=== PATIENT | male | born 1975 | race Caucasian/White ===

== ENCOUNTER 2019-05-11 20:05 | Emergency (ER) | payer MEDICAID ==
[~2019-05-11] VITALS: Ht 172.7 cm; Wt 72.6 kg
--- NOTE | 2019-05-11 20:05 | NUR ---
PT REPORTED AMBULATORY ON SEEN. SCOOTED SELF FROM GURNEY TO BED 4.
[2019-05-11 20:09] VITALS: BP 144/88
--- NOTE | 2019-05-11 20:09 | NUR ---
43 Y/O MALE BIBA FOR RIGHT FLANK PAIN. PER AMBULANCE, PATIENT WENT TO [facility] FOR THE PAIN AND WAS UPSET THAT NOTHING WAS DONE AND STARTED SWINGING HIS LUGGAGE AROUND. PATIENT STATES A PAIN OF 10/10 RIGHT FLANK PAIN NON RADIATING. ABDOMEN IS SOFT AND ROUND. ABDOMINAL SOUNDS ARE PRESENT. PAIN UPON RIGHT SIDE FLANK PALPATION. PATIENT IS A POOR HISTORIAN. ERMD MADE AWARE OF STATUS. SIDE RAILSX1. PLACED ON MONITOR. PMH: BIPOLAR; SCHIZOPHRENIA RX:DENIES NKDA
--- NOTE | 2019-05-11 20:15 | NUR ---
ERMD AT BEDSIDE EVALUATING PATIENT.
[2019-05-11] MEDS ORDERED: KETOROLAC 60 MG/2 ML VIAL IM ONE (20:30)
--- NOTE | 2019-05-11 20:36 | NUR ---
PATIENT AMBULATED TO RESTROOM.
--- NOTE | 2019-05-11 20:37 | NUR ---
PATIENT REFUSED TO GO TO X-RAY. VIRGINIAD MADE AWARE.
--- NOTE | 2019-05-11 20:38 | NUR ---
PATIENT AMBULATED BACK TO ROOM.
[2019-05-11 20:58] VITALS: BP 144/88
--- NOTE | 2019-05-11 20:58 | NUR ---
PATIENT REFUSING TREATMENT AT THIS TIME. ERMD AWARE. [facility].
--- NOTE | 2019-05-11 20:58 | NUR ---
PATIENT ELOPED FROM FACILITY. DISCHARGE INSTRUCTIONS NOT GIVEN TO PATIENT. DR. STOCK NOTIFIED.
--- NOTE | 2019-05-11 20:59 | NUR ---
Pippa ochoa in ED - 05/11/19 at 2102 by MILI PATIENT REFUSING TREATMENT AT THIS TIME. LORENZA AWARE. AMBULATED TO THE [facility].
== END 2019-05-11 20:58 | disposition home or self-care (01) ==
LOC: MED 20:05
DX: S29.011A Strain of muscle and tendon of front wall of thorax, initial encounter (principal); F31.9 Bipolar disorder, unspecified; F20.9 Schizophrenia, unspecified; X58.XXXA Exposure to other specified factors, initial encounter; Y92.89 Other specified places as the place of occurrence of the external cause; Y93.89 Activity, other specified; Y99.8 Other external cause status
CPT/HCPCS: 96372; 99283; J1885